=== PATIENT | female | born 1990 | race Hispanic/Latino ===

== ENCOUNTER 2017-04-13 00:09 | Emergency (ER) | payer SELFPAY ==
[2017-04-13] MEDS ORDERED: Dexamethasone 10 MG/ML VIAL ONE (00:52)
[2017-04-13] MEDS ORDERED: Famotidine 20 MG TAB ONE (00:52)
[2017-04-13] MEDS ORDERED: diphenhydrAMINE 25 MG CAP ONE (00:52)
== END 2017-04-13 01:39 | disposition home or self-care (01) ==
LOC: SCSER 00:09
DX: T78.3XXA Angioneurotic edema, initial encounter (principal); F32.9 Major depressive disorder, single episode, unspecified; F17.210 Nicotine dependence, cigarettes, uncomplicated
CPT/HCPCS: 96372; J1100

== ENCOUNTER 2020-04-07 19:50 | Emergency (ER) | payer SELFPAY ==
[~2020-04-07 19:50] MED LIST: Iopamidol-370 76% 500 ML 1 ML ONE
[2020-04-07] MEDS ORDERED: Ketorolac Tromethamine 30 MG/ML VIAL ONE (20:19)
[2020-04-07 20:22] LABS: Bacteria/HPF None Seen HPF (None Seen); Bilirubin Negative (Negative); Blood, Urine 1+ (Negative); Clarity Clear (Clear); Glucose, Urine (Dipstick) Normal (Negative); Ketone, Urine 60 mg/dL (Negative); Leukocyte 75 Leu/uL (Negative); Nitrite Negative (Negative); Protein, Urine (Dipstick) 50 mg/dL (Neg-Trace); Specific Gravity, Urine 1.049 (1.002-1.036); Urobilinogen 6 mg/dL (Less than 2); pH, Urine 6.5 (5.0-9.0)
[2020-04-07 20:24] LABS: Pregnancy Test - Urine (BHCG) Negative (Negative); Pregu Control Background? CLEAR/WHITE (CLR/WHITE); Pregu Control Bar Appear? YES (CONTROL BAR); Specific Gravity 1.049 (1.002-1.036)
[2020-04-07 20:25] LABS: Hemoglobin 13.1 g/dL (12.0-16.0); Mean Corpuscular HGB CONC 34.3 g/dL (32.0-36.0); Mean Corpuscular Hemoglobin 31.4 pg (27.0-31.0); Mean Corpuscular Volume 91.7 fL (78.0-98.0); Platelet Count 254 thou/uL (130-400); RBC Distribution Width 11.5 % (11.5-14.5); Red Blood Cell (RBC) Count 4.15 mill/uL (4.20-5.40); White Blood Cell (WBC) Count 24.6 thou/uL (4.8-10.8)
--- NOTE | 2020-04-07 20:57 | CT ---
CT abdomen and pelvis: 04/07/2020 COMPARISON: None HISTORY: Constipation, back pain TECHNIQUE: Axial CT imaging at 5 mm intervals from the lung bases through the pubic symphysis with IV contrast. Coronal and sagittal reformatted imaging obtained. FINDINGS: Evaluation of the bowel is limited without oral contrast. The imaged lung bases appear unremarkable. There is no free intraperitoneal air. The liver, gallbladder, spleen, pancreas, adrenal glands, and kidneys demonstrate no acute findings. There may be mild wall thickening of the sigmoid: Adjacent to the cecum within the left lower quadran t with mild adjacent fat stranding. There appear to be a few mildly thick walled loops of small bowel within the lower left pelvis. There is significant stool seen within the colon at the level of the cecum and proximal ascending colon. No evidence for bowel obstruction. It is difficult to visualize the appendix. No convincing evidence for acute appendicitis is seen. No evidence for bowel obstruction. No abdominal or pelvic abscess is appreciated on this exam. The vascular structures of the abdomen/pelvis appear patent. No abdominal or pelvic lymphadenopathy. No acute osseous abnormality. IMPRESSION: There is a suggestion of wall thickening and mucosal enhancement involving the distal sma ll bowel. There may be adjacent thickening and inflammatory change involving the sigmoid colon. Findings may signify enteritis/colitis on the basis of an infectious process or inflammatory bowel di sease. Recommend follow-up GI consultation. No evidence for bowel obstruction. No free intraperitoneal air.
[2020-04-07 21:00] LABS: Band 4 % (5-11); Lymphocytes 5 % (21-51); MDiff Complete? YES; Monocytes 2 % (0-10); Neutrophil 89 % (42-75)
[2020-04-07] MEDS ORDERED: Morphine 4 MG/ML VIAL ONE (21:01)
[2020-04-07] MEDS ORDERED: Ondansetron PF 4 MG/2 ML Vial ONE ×2 (21:01→22:51)
[2020-04-07] MEDS ORDERED: metroNIDAZOLE 500 MG/100 ML BAG ONE (21:05)
[2020-04-07 21:12] LABS: Albumin 4.3 g/dL (3.5-5.0)
[2020-04-07 21:13] LABS: Chloride 102 mmol/L (98-107); Potassium 3.5 mmol/L (3.5-5.1)
[2020-04-07 21:14] LABS: Calcium 8.8 mg/dL (7.8-10.44); Glucose 141 mg/dL (70-105)
[2020-04-07 21:15] LABS: Protein, Total 7.3 g/dL (6.0-8.3)
[2020-04-07 21:16] LABS: Anion Gap 18 mmol/L (10-20); Bilirubin, Total 0.8 mg/dL (0.2-1.2); Carbon Dioxide 21 mmol/L (22-29)
[2020-04-07 21:17] LABS: Alkaline Phosphatase 86 U/L (40-110)
[2020-04-07 21:18] LABS: Calc. Creatinine Clearance 0 mL/min (70-130); Estimated GFR-MDRD Greater than 90
[2020-04-07 21:19] LABS: BUN (Urea Nitrogen) 13 mg/dL (7.0-18.7)
[2020-04-07 21:20] LABS: ALT (SGPT) 20 U/L (8-55); AST (SGOT) 21 U/L (5-34)
[2020-04-07 21:29] LABS: Sodium 137 mmol/L (136-145)
== END 2020-04-07 23:00 | disposition home or self-care (01) ==
LOC: ERS 19:50
DX: K52.9 Noninfective gastroenteritis and colitis, unspecified (principal); F41.9 Anxiety disorder, unspecified; F32.9 Major depressive disorder, single episode, unspecified; R11.2 Nausea with vomiting, unspecified; Z87.891 Personal history of nicotine dependence
CPT/HCPCS: 74177; 80053; 81003; 81015; 81025; 83605; 85025; 94760; 96365; 96366; 96368; 96375; 96376; J0744; J1885; J2270; J2405; Q9967